=== PATIENT | female | born 1960 | race Caucasian/White ===

== ENCOUNTER → 2016-08-30 | Outpatient (CLI) | payer BC ==
[2016-08-30 15:01] LABS: THYROID STIMULATING HORMONE 0.035 uIu/ml (0.300-4.500)
[2016-08-30 15:04] LABS: ESTIMATED AVERAGE GLUCOSE 126 mg/dl; HA1C FLAG Normal (Normal)
== END | disposition home or self-care (01) ==
LOC: C.LAB1850 12:45
PROVIDERS: ATTEND Internal Medicine Endocrinology, Diabetes & Metabolism
DX: E89.0 Postprocedural hypothyroidism (principal); E83.51 Hypocalcemia; E16.2 Hypoglycemia, unspecified; E20.9 Hypoparathyroidism, unspecified; Z98.84 Bariatric surgery status; E06.3 Autoimmune thyroiditis; M85.80 Other specified disorders of bone density and structure, unspecified site